=== PATIENT | female | born 1975 | race Caucasian/White ===

== ENCOUNTER 2019-09-28 08:37 | Emergency (ER) | payer OTHER, SELFPAY ==
--- NOTE | ~2019-09-28 | XR_ITS ---
EXAMINATION: XR hand RT min 3V EXAM DATE: 09/28/2019 09:06 INDICATION: Initial encounter following injury, with pain of the right hand, fourth and fifth finger s. TECHNIQUE: Right hand frontal, lateral and oblique projections obtained and reviewed. Comparison is m bennie to prior examination from 01/06/2019. FINDINGS: Right metacarpal bones are unremarkable. There are no acute fractures or dislocations iden tified. There is no subcutaneous gas. The soft tissue is unremarkable. There are no radiopaque fo reign bodies. IMPRESSION: 1. XR hand RT min 3V exam without acute osseous findings. Reviewed, dictated and finalized at location B. OR [employer]
[2019-09-28 08:40] VITALS: BP 147/88; PULSE 99; RESP 16; TEMP 36.9; O2SAT 96
--- NOTE | 2019-09-28 09:13 | ED.UPPEXIN ---
HPI - Extremity Injury (Upper) General Chief Complaint: Extremity Injury, Upper <Bhumika Bazzi PA-C - Last Filed: 09/28/19 09:52> Stated Complaint: R HAND INJURY <VIKAS Larsen Last Filed: 09/28/19 09:52> Time Seen by Provider: 09/28/19 09:03 <Bhumika Bazzi PA-C - Last Filed: 09/28/19 09:52> Source: patient <VIKAS Larsen Last Filed: 09/28/19 09:52> Mode of arrival: ambulatory <VIKAS Larsen Last Filed: 09/28/19 09:52> Limitations: no limitations <VIKAS Larsen Last Filed: 09/28/19 09:52> History of Present Illness HPI narrative: This is a 44-year-old female that presents the emergency department for right hand pain after an injury last night. Reports she was angry at her friend and punched a wall. Reports since she has had pain in her right hand, especially of the fourth and fifth fingers. Reports decreased range of motion due to pain. Denies numbness. <VIKAS Larsen Last Filed: 09/28/19 09:52> Related Data Allergies/Adverse Reactions: Allergies Allergy/AdvReac Type Severity Reaction Status Date / Time ketorolac Allergy Intermediate RASH Verified 05/16/19 12:59 acetaminophen Allergy Mild ITCHING, Verified 05/16/19 12:59 HIVES latex Allergy Mild RASH Verified 05/16/19 12:59 meperidine Allergy Mild RASH Verified 05/16/19 12:59 propoxyphene Allergy Mild RASH, Verified 05/16/19 12:59 ITCHING divalproex sodium Allergy Unknown RASH, HAIR Verified 05/16/19 12:59 LOSS hydrocodone Allergy Unknown RASH Verified 05/16/19 12:59 morphine Allergy Unknown SOB, Verified 05/16/19 12:59 THROAT SWELLING Penicillins Allergy Unknown RASH, HIVES Verified 05/16/19 12:59 phenytoin Allergy Unknown RASH Verified 05/16/19 12:59 <VIKAS Larsen Last Filed: 09/28/19 09:52> Review of Systems Review of Systems: Narrative: CONSTITUTIONAL: Denies fever SKIN: Denies laceration MUSCULOSKELETAL: Reports joint pain, and myalgia. NEUROLOGIC: Denies numbness <Bhumika Bazzi PA-C - Last Filed: 09/28/19 09:52> All systems reviewed & are unremarkable except as noted in HPI and below <Bhumika Bazzi PA-C - Last Filed: 09/28/19 09:52> PMFSH Past Medical History Medical History: Medical History (Updated 09/28/19 @ 09:52 by Bhumika Bazzi PA-C) History of asthma History of bipolar disorder History of depression History of diabetes mellitus History of gastroesophageal reflux (GERD) History of seizures History of sleep apnea <Bhumika Bazzi PA-C - Last Filed: 09/28/19 09:52> Surgical History Surgical History: Surgical History (Updated 09/28/19 @ 09:16 by Bhumika Bazzi PA-C) History of section History of cholecystectomy History of tonsillectomy History of tubal ligation Status post myringotomy with insertion of tube <Bhumika Bazzi PA-C - Last Filed: 09/28/19 09:52> Social History Social History: Social History (Updated 09/28/19 @ 09:16 by Bhumika Bazzi PA-C) Smoking status: Current some day smoker Alcohol intake: never Substance use: never <Bhumika Bazzi PA-C - Last Filed: 09/28/19 09:52> Exam Narrative: Exam Narrative: GENERAL: Well-appearing, well-nourished, and in no acute distress. HEAD: Normocephalic, atraumatic. EYES: EOMI. EXTREMITIES: Decreased range of motion in the fourth and fifth fingers due to pain. No edema or obvious deformity. Normal sensation. Normal radial pulses SKIN: Warm, dry, no rash. NEURO: No focal deficits. Alert and oriented x3. PSYCH: Normal mood and affect <Bhumika Bazzi PA-C - Last Filed: 09/28/19 09:52> Course Vital Signs Vital signs: Vital Signs Temperature 98.5 F 09/28/19 08:40 Pulse Rate 99 09/28/19 08:40 Respiratory Rate 16 09/28/19 08:40 Blood Pressure 147/88 H 09/28/19 08:40 Pulse Oximetry 96 09/28/19 08:40 Temperature 98.5 F 09/28/19 08:40 Pulse Rate 99 09/28/19 08:4
[2019-09-28] MEDS: IBUPROFEN 600 MG TABLET PO (09:15)
== END 2019-09-28 10:01 | disposition home or self-care (01) ==
PROVIDERS: Emergency Provider General Practice
DX: M79.641 Pain in right hand (principal); J45.909 Unspecified asthma, uncomplicated; K21.9 Gastro-esophageal reflux disease without esophagitis; E11.9 Type 2 diabetes mellitus without complications; G47.30 Sleep apnea, unspecified; F17.200 Nicotine dependence, unspecified, uncomplicated; W22.09XA Striking against other stationary object, initial encounter
CPT/HCPCS: 73130; 99283; A9270

== ENCOUNTER 2019-10-04 15:14 | Outpatient (RCR) | payer OTHER, SELFPAY | END 2019-10-04 23:59 | disposition home or self-care (01) | LOC: ANHAUDIO 15:14 | PROVIDERS: Visit Provider Otolaryngology | DX: Z46.1 Encounter for fitting and adjustment of hearing aid (principal) | CPT/HCPCS: 99199 ==

== ENCOUNTER 2020-01-24 12:49 | Emergency (ER) | payer OTHER, SELFPAY ==
--- NOTE | ~2020-01-24 | XR_ITS ---
EXAMINATION: XR chest 2V DATE: 01/24/2020 13:47 INDICATION: Shortness of breath TECHNIQUE: Frontal and lateral views of the chest are obtained COMPARISON: 03/29/2016 FINDINGS: The lungs are free of acute opacities. There is no pleural effusion or pneumothorax. The ca rdiomediastinal silhouette is normal. There is mild thoracic spondylosis. IMPRESSION: 1. No acute cardiopulmonary abnormality. Reviewed, dictated and finalized at location A.
[2020-01-24 12:54] VITALS: BP 135/80; PULSE 85; RESP 18; TEMP 36.3; O2SAT 100
[2020-01-24 13:12] VITALS: BP 139/93; PULSE 80; PULSE 83; RESP 16; TEMP 36.3; O2SAT 96
--- NOTE | 2020-01-24 13:12 | ECG_ITS ---
Measurements Intervals [place] Rate: 70 P: 63 SD: 181 QRS: 59 QRSD: 93 T: 47 QT: 419 QTc: 453 Interpretive Statements SINUS RHYTHM BASELINE ARTIFACT- I, II, III, AVR, AVL, AVF, V1-V2 NORMAL ECG Electronically Signed On 01-24-2020 14:30:58 CDT by Catalino Thomason D.O.
[2020-01-24 13:28] LABS: Basophils Percent Auto 0.3 % (0.2-1.2); Eosinophils Absolute Auto 0.1 K/mm3 (0-0.3); Eosinophils Percent Auto 1.2 % (0-4.4); Hematocrit 44.8 % (37.0-47.0); Hemoglobin 14.7 g/dL (12.0-15.0); Lymphocytes Absolute Auto 1.39 K/mm3 (0.9-3.2); Lymphocytes Percent Auto 13.3 % (18.3-44.2); Mean Corpuscular HGB Conc 32.8 g/dl (32-36); Mean Corpuscular Hemoglobin 31.9 pg (26-34); Mean Corpuscular Volume 97.2 fl (80-100); Mean Platelet Volume 9.5 fl (7.4-10.4); Monocytes Absolute Auto 0.6 K/mm3 (0.1-0.6); Monocytes Percent Auto 5.6 % (2.6-8.5); Neutrophils Absolute Auto 8.2 K/mm3 (1.3-6.7); Neutrophils Percent Auto 78.6 % (45.5-73.1); Platelet Count Result 292 k/mm3 (150-375); Red Blood Count 4.61 M/mm3 (4.2-5.4); Red Cell Distribution Width 13.2 % (11.5-14.5); White Blood Count 10.4 K/mm3 (4.5-10.0)
[2020-01-24 13:46] LABS: Blood Urea Nitrogen 10 mg/dL (7-17); Calcium 8.9 mg/dL (8.4-10.2); Carbon Dioxide 29 mmol/L (22-30); Chloride 102 mmol/L (98-107); Estimated CRCL calculation 120 ml/min; Estimated Glomerular Filt Rate > 60; Glucose 78 mg/dL (65-105); Potassium 3.7 mmol/L (3.4-5.0); Sodium 136 mmol/L (137-145)
--- NOTE | 2020-01-24 14:25 | ED.GENADULT ---
HPI - General Adult General Chief complaint: Shortness of Breath/Dyspnea <VIKAS Denise Last Filed: 01/24/20 14:34> Stated complaint: SOB, asthma <VIKAS Denise Last Filed: 01/24/20 14:34> Time Seen by Provider: 01/24/20 13:11 <VIKAS Denise Last Filed: 01/24/20 14:34> Source: patient <VIKAS Denise Last Filed: 01/24/20 14:34> Mode of arrival: ambulatory <VIKAS Denise Last Filed: 01/24/20 14:34> Limitations: no limitations <VIKAS Denise Last Filed: 01/24/20 14:34> History of Present Illness HPI narrative: Patient is a 44-year-old female who presents to emergency department for evaluation of dyspnea and chest tightness patient notes history of asthma and states that when she wears a mask it causes her to become short of breath patient was told she had to wear her mask today and began to feel short of breath patient notes that that is when she developed her symptoms patient on arrival denies any recent illness sick contacts or other complaints and is resting comfortably in the room in no distress <Sudhakar Fonseca PA-C - Last Filed: 01/24/20 14:34> Related Data Allergies/adverse reactions: Allergies Allergy/AdvReac Type Severity Reaction Status Date / Time ketorolac Allergy Intermediate RASH Verified 05/16/19 12:59 acetaminophen Allergy Mild ITCHING, Verified 05/16/19 12:59 HIVES latex Allergy Mild RASH Verified 05/16/19 12:59 meperidine Allergy Mild RASH Verified 05/16/19 12:59 propoxyphene Allergy Mild RASH, Verified 05/16/19 12:59 ITCHING divalproex sodium Allergy Unknown RASH, HAIR Verified 05/16/19 12:59 LOSS hydrocodone Allergy Unknown RASH Verified 05/16/19 12:59 morphine Allergy Unknown SOB, Verified 05/16/19 12:59 THROAT SWELLING Penicillins Allergy Unknown RASH, HIVES Verified 05/16/19 12:59 phenytoin Allergy Unknown RASH Verified 05/16/19 12:59 <VIKAS Denise Last Filed: 01/24/20 14:34> Review of Systems Review of Systems: All systems reviewed & are unremarkable except as noted in HPI and below <Sudhakar Fonseca PA-C - Last Filed: 01/24/20 14:34> [facility] Past Medical History Medical History: Medical History History of asthma History of bipolar disorder History of depression History of diabetes mellitus History of gastroesophageal reflux (GERD) History of seizures History of sleep apnea <Sudhakar Fonseca PA-C - Last Filed: 01/24/20 14:34> Surgical History Surgical History: Surgical History History of section History of cholecystectomy History of tonsillectomy History of tubal ligation Status post myringotomy with insertion of tube <Sudhakar Fonseca PA-C - Last Filed: 01/24/20 14:34> Social History Social History: Social History Smoking status: Current some day smoker Alcohol intake: never Substance use: never Gender identity (if verbalized by the patient): Female <Sudhakar Fonseca PA-C - Last Filed: 01/24/20 14:34> Exam Narrative: Exam Narrative: GENERAL: Well-appearing, obese, and in no acute distress. HEAD: Normocephalic, atraumatic. EYES: PERRLA and EOMI. ENT: Nares clear, no rhinorrhea or epistaxis. Mucous membranes moist. Oropharynx without tonsillar hypertrophy exudate or other lesions. NECK: Supple. No adenopathy or masses. No carotid bruits or JVD CHEST: Slightly diminished on auscultation. No respiratory distress. Slight expiratory wheezes noted HEART: Regular rate and rhythm. No murmur heard. Normal peripheral pulses. EXTREMITIES: Normal range of motion. No edema. SKIN: Warm, dry, no rash. NEURO: No focal deficits. Alert and oriented x3. Cranial nerves II through XII grossly intact PSYCH: Normal mood and affect. <Sudhakar Armijo
== END 2020-01-24 14:42 | disposition home or self-care (01) ==
PROVIDERS: Emergency Provider Emergency Medicine; PCP Family Medicine
DX: J45.901 Unspecified asthma with (acute) exacerbation (principal); E11.9 Type 2 diabetes mellitus without complications; K21.9 Gastro-esophageal reflux disease without esophagitis; G47.30 Sleep apnea, unspecified; F17.200 Nicotine dependence, unspecified, uncomplicated
CPT/HCPCS: 36415; 71046; 80048; 85025; 93005; 99284

== ENCOUNTER 2020-02-09 02:35 | Emergency (ER) | payer OTHER, SELFPAY ==
--- NOTE | ~2020-02-09 | XR_ITS ---
EXAMINATION: XR chest 2V DATE: 02/09/2020 03:08 INDICATION: Midline chest pain TECHNIQUE: PA and lateral views of the chest are obtained. COMPARISON: 01/24/2020 FINDINGS: The lungs are free of acute opacities. There is no pleural effusion or pneumothorax. The ca rdiomediastinal silhouette is normal. There is mild thoracic spondylosis. Surgical clips in the right upper quadrant are likely from prior cholecystectomy. IMPRESSION: 1. No acute cardiopulmonary abnormality. Reviewed, dictated and finalized at location A.
[2020-02-09 02:32] VITALS: BP 140/90; PULSE 85; RESP 20; TEMP 36.8; O2SAT 100
--- NOTE | 2020-02-09 02:34 | ED.CHESTPAIN ---
HPI - Chest Pain General Chief Complaint: Chest Pain Stated Complaint: cp History of Present Illness HPI narrative: Pleuritic chest pain for the past 1 hour. Started while lying in bed. No exacerbating or alleviating factors. took nitro glycerin and aspirin at home with moderate improvement in pain. Related Data Home Medications Medication Instructions Recorded Confirmed aripiprazole mg 02/15/20 buspirone mg 02/15/20 lisinopril 02/15/20 02/15/20 oxcarbazepine 750 mg PO 02/15/20 spironolactone 02/15/20 Allergies Allergy/AdvReac Type Severity Reaction Status Date / Time ketorolac Allergy Intermediate RASH Verified 02/15/20 07:11 acetaminophen Allergy Mild ITCHING, Verified 02/15/20 07:11 HIVES latex Allergy Mild RASH Verified 02/15/20 07:11 meperidine Allergy Mild RASH Verified 02/15/20 07:11 propoxyphene Allergy Mild RASH, Verified 02/15/20 07:11 ITCHING divalproex sodium Allergy Unknown RASH, HAIR Verified 02/15/20 07:11 LOSS hydrocodone Allergy Unknown RASH Verified 02/15/20 07:11 morphine Allergy Unknown SOB, Verified 02/15/20 07:11 THROAT SWELLING Penicillins Allergy Unknown RASH, HIVES Verified 02/15/20 07:11 phenytoin Allergy Unknown RASH Verified 02/15/20 07:11 Review of Systems Review of Systems: All systems reviewed & are unremarkable except as noted in HPI and below Constitutional: Constitutional: Denies fever(s) ENT: Denies sore throat Cardiovascular: Cardiovascular: Reports chest pain and Denies radiating jaw, neck or arm pain Respiratory: Respiratory: Denies cough Gastrointestinal: Gastrointestinal: Reports abdominal pain Musculoskeletal: Musculoskeletal: Denies back pain Neurologic: Denies numbness and Denies weakness Psychiatric: Psychiatric: Reports anxiety and Reports depression ON LICENSE OF [facility] Past Medical History Medical History History of asthma History of bipolar disorder History of depression History of diabetes mellitus History of gastroesophageal reflux (GERD) History of seizures History of sleep apnea Surgical History Surgical History History of section History of cholecystectomy History of tonsillectomy History of tubal ligation Status post myringotomy with insertion of tube Social History Social History Smoking status: Current some day smoker Alcohol intake: never Substance use: never Gender identity (if verbalized by the patient): Female Exam Const: General: healthy appearing, no acute distress and alert Orientation/consciousness: patient oriented x3 HENMT: Head: normal to inspection Neck: Neck: normal visual inspection and no lymphadenopathy Chest: Chest palpation & inspection: no tenderness Resp: Effort & Inspection: normal respiratory effort Auscultation: clear to auscultation bilaterally, no rales, no rhonchi and no wheezes Cardio: Jugular venous distension: no JVD Rate: regular rate Rhythm: regular rhythm Heart sounds: no murmurs GI: GI Palp: Yes Soft to palpation and No Tenderness to palpation present (GI) Other: Mild epigastric tenderness Skin: General skin exam: normal color Neuro: General: patient oriented x3 and moves all extremities Speech: normal speech Extrem: General: no edema Psych: Appearance: well kempt Affect: normal affect Course Vital Signs Vital signs: Vital Signs Temperature 36.8 C 02/09/20 02:32 Pulse Rate 85 02/09/20 02:32 Respiratory Rate 20 02/09/20 02:32 Blood Pressure 140/90 02/09/20 02:32 Pulse Oximetry 100 02/09/20 02:32 Temperature 36.6 C 02/09/20 05:20 Pulse Rate 81 02/09/20 05:20 Respiratory Rate 18 02/09/20 05:20 Blood Pressure 141/97 H 02/09/20 05:20 Pulse Oximetry 99 02/09/20 05:20 MDM - Chest Pain Medical Records Data Attestation: I reviewed the p
--- NOTE | 2020-02-09 02:42 | ECG_ITS ---
Measurements Intervals [place] Rate: 84 P: 40 [place]: 176 QRS: 52 QRSD: 83 T: 50 QT: 358 QTc: 425 Interpretive Statements SINUS RHYTHM ST ELEVATION IN DIFFUSE LEADS- PROBABLY EARLY REPOLARIZATION BORDERLINE ECG Electronically Signed On 02-09-2020 7:25:17 CDT by Catalino Thomason D.O.
[2020-02-09 03:06] LABS: Basophils Percent Auto 0.5 % (0.2-1.2); Eosinophils Absolute Auto 0.3 K/mm3 (0-0.3); Eosinophils Percent Auto 3.2 % (0-4.4); Hematocrit 42.6 % (37.0-47.0); Hemoglobin 13.9 g/dL (12.0-15.0); Immature Granulocyte Absolute 0.06 K/mm3 (0.00-0.031); Immature Granulocyte Percent A 0.8 % (0-0.5); Lymphocytes Absolute Auto 1.35 K/mm3 (0.9-3.2); Lymphocytes Percent Auto 17.5 % (18.3-44.2); Mean Corpuscular HGB Conc 32.6 g/dl (32-36); Mean Corpuscular Hemoglobin 32.3 pg (26-34); Mean Corpuscular Volume 98.8 fl (80-100); Mean Platelet Volume 9.6 fl (7.4-10.4); Monocytes Absolute Auto 0.6 K/mm3 (0.1-0.6); Monocytes Percent Auto 7.1 % (2.6-8.5); Neutrophils Absolute Auto 5.5 K/mm3 (1.3-6.7); Neutrophils Percent Auto 70.9 % (45.5-73.1); Platelet Count Result 272 k/mm3 (150-375); Red Blood Count 4.31 M/mm3 (4.2-5.4); Red Cell Distribution Width 13.4 % (11.5-14.5); White Blood Count 7.7 K/mm3 (4.5-10.0)
[2020-02-09 03:18] LABS: Blood Urea Nitrogen 14 mg/dL (7-17); Calcium 8.9 mg/dL (8.4-10.2); Carbon Dioxide 30 mmol/L (22-30); Chloride 102 mmol/L (98-107); Estimated Glomerular Filt Rate > 60; Glucose 141 mg/dL (65-105); Potassium 3.8 mmol/L (3.4-5.0); Sodium 136 mmol/L (137-145)
[2020-02-09 03:27] VITALS: BP 126/77; PULSE 82; RESP 20; O2SAT 98
[2020-02-09 03:30] LABS: Partial Thromboplastin Time 25.4 SECONDS (22.3-36.8); Prothrombin Time 12.5 Seconds (11.1-14.7); Troponin I < 0.012 ng/mL (0.000-0.034)
[2020-02-09 04:12] VITALS: BP 126/77; PULSE 75; RESP 20; O2SAT 100
[2020-02-09 05:20] VITALS: BP 141/97; PULSE 81; RESP 18; TEMP 36.6; O2SAT 99
== END 2020-02-09 05:23 | disposition home or self-care (01) ==
PROVIDERS: Emergency Provider Emergency Medicine; PCP Family Medicine
DX: R07.81 Pleurodynia (principal); J45.909 Unspecified asthma, uncomplicated; F31.9 Bipolar disorder, unspecified; E11.9 Type 2 diabetes mellitus without complications; K21.9 Gastro-esophageal reflux disease without esophagitis; G47.30 Sleep apnea, unspecified; F17.200 Nicotine dependence, unspecified, uncomplicated; R94.31 Abnormal electrocardiogram [ECG] [EKG]
CPT/HCPCS: 36415; 71046; 80048; 84484; 85025; 85610; 85730; 93005; 99284

== ENCOUNTER 2020-02-15 07:03 | Emergency (ER) | payer OTHER, SELFPAY ==
--- NOTE | ~2020-02-15 | XR_ITS ---
EXAMINATION: XR chest 1V portable DATE: 02/15/2020 07:44 INDICATION: Dizziness. TECHNIQUE: A single frontal view of the chest was obtained. COMPARISON: Chest 2 views 02/09/2020 FINDINGS: The chest demonstrates clear lungs without pneumonia, pleural effusion, or pneumothorax. Th e heart size is normal. IMPRESSION: 1. No acute cardiopulmonary disease. Reviewed, dictated and finalized at location A.
[2020-02-15 07:03] VITALS: BP 131/80; PULSE 96; RESP 15; TEMP 36.7; O2SAT 100
--- NOTE | 2020-02-15 07:07 | ECG_ITS ---
Measurements Intervals [place] Rate: 89 P: 50 [place]: 175 QRS: 28 QRSD: 92 T: 34 QT: 360 QTc: 440 Interpretive Statements SINUS RHYTHM BASELINE ARTIFACT- I, III, AVL, AVF NORMAL ECG Electronically Signed On 02-18-2020 8:56:39 CDT by Catalino Thomason D.O.
--- NOTE | 2020-02-15 07:13 | ED.GENADULT ---
HPI - General Adult General Chief complaint: Dizziness Stated complaint: dizzy Time Seen by Provider: 02/15/20 07:05 Source: RN notes reviewed History of Present Illness HPI narrative: Patient presents emergency department from home via EMS for possible seizure. Patient states she had the order that she was going to have a seizure this morning and called EMS. She states that she has a history of seizures and was just outside hospital yesterday for an EEG. Patient states she is on Trileptal 750 mg twice daily which she took last night did not take her dose this morning. She denies any recent illness denies any fevers or chills chest pain shortness of breath or any other symptoms. She states she does feel mildly dizzy with the symptoms Related Data Home Medications Medication Instructions Recorded Confirmed aripiprazole mg 02/15/20 buspirone mg 02/15/20 lisinopril 02/15/20 02/15/20 oxcarbazepine 750 mg PO 02/15/20 spironolactone 02/15/20 Allergies Allergy/AdvReac Type Severity Reaction Status Date / Time ketorolac Allergy Intermediate RASH Verified 02/15/20 07:11 acetaminophen Allergy Mild ITCHING, Verified 02/15/20 07:11 HIVES latex Allergy Mild RASH Verified 02/15/20 07:11 meperidine Allergy Mild RASH Verified 02/15/20 07:11 propoxyphene Allergy Mild RASH, Verified 02/15/20 07:11 ITCHING divalproex sodium Allergy Unknown RASH, HAIR Verified 02/15/20 07:11 LOSS hydrocodone Allergy Unknown RASH Verified 02/15/20 07:11 morphine Allergy Unknown SOB, Verified 02/15/20 07:11 THROAT SWELLING Penicillins Allergy Unknown RASH, HIVES Verified 02/15/20 07:11 phenytoin Allergy Unknown RASH Verified 02/15/20 07:11 Review of Systems Review of Systems: Narrative: Gen.: Denies fevers or chills Eyes: Denies eye pain or visual change ENT: Denies congestion Respiratory: Denies shortness of breath or cough CV: Denies chest pain or palpitations GI: Denies abdominal pain nausea, emesis or diarrhea Musculoskeletal: Denies back pain or muscle pain Neuro: See HPI Skin: Denies rash Except as documented, all other systems reviewed and negative PMFSH Past Medical History Medical History History of asthma History of bipolar disorder History of depression History of diabetes mellitus History of gastroesophageal reflux (GERD) History of seizures History of sleep apnea Social History Social History Smoking status: Current some day smoker Alcohol intake: never Substance use: never Gender identity (if verbalized by the patient): Female Exam Narrative: Exam Narrative: APPEARANCE: No acute distress, nontoxic, resting in bed EYES: EOMI HEENT: Normocephalic, atraumatic, OMM RESPIRATORY: No respiratory distress Clear to auscultation bilaterally with no rhonchi wheezing or rales. CARDIOVASCULAR: Regular rate and rhythm without murmurs rubs or gallops. ABDOMINAL: Soft, nontender, nondistended, no rebound or guarding MUSCULOSKELETAl: Moves all extremities. No clubbing, cyanosis or edema. NEURO: Awake and alert. Following commands, speech normal, no focal deficits SKIN:: Warm, dry. No rashes lesions or abrasions PSYCHIATRIC: Normal affect/mood, Course Course Emergency Course: Patient given her daily dose of Trileptal in the emergency department. Monitored for 3 hours no signs of seizures. Will discharge at this time Discussed with patient results of workup and diagnosis. Discussed need for follow-up with primary care, proper use of medication, and reasons to return to the emergency department. Patient understands and agrees to current treatment plan Vital Signs Vital signs: Vital Signs Temperature 98.1 F 02/15/20 07:03 Pulse Rate 96 02/15/20 07:03 Respiratory Rate 15 02/15/20 07:03 Blood Pressure 131/80 02/15/20 07:03 Pulse Oximetry 100 02/15/20 07:03 Temperature 98.
[2020-02-15 07:19] LABS: Basophils Absolute Auto 0.1 K/mm3 (0.0-0.1); Basophils Percent Auto 0.5 % (0.2-1.2); Eosinophils Absolute Auto 0.3 K/mm3 (0-0.3); Eosinophils Percent Auto 2.9 % (0-4.4); Hematocrit 45.4 % (37.0-47.0); Immature Granulocyte Absolute 0.05 K/mm3 (0.00-0.031); Immature Granulocyte Percent A 0.5 % (0-0.5); Lymphocytes Absolute Auto 1.25 K/mm3 (0.9-3.2); Lymphocytes Percent Auto 13.6 % (18.3-44.2); Mean Corpuscular Hemoglobin 32.1 pg (26-34); Mean Platelet Volume 9.3 fl (7.4-10.4); Monocytes Absolute Auto 0.7 K/mm3 (0.1-0.6); Monocytes Percent Auto 7.1 % (2.6-8.5); Neutrophils Absolute Auto 6.9 K/mm3 (1.3-6.7); Neutrophils Percent Auto 75.4 % (45.5-73.1); Platelet Count Result 288 k/mm3 (150-375); Red Blood Count 4.68 M/mm3 (4.2-5.4); Red Cell Distribution Width 13.9 % (11.5-14.5); White Blood Count 9.2 K/mm3 (4.5-10.0)
[2020-02-15] MEDS: OXcarbazepine 300 MG TABLET 600 MG PO (07:24)
[2020-02-15] MEDS: SODIUM CHLORIDE 0.9% IV 1,000 ML 999 ML IV CONT (07:24)
[2020-02-15] MEDS: OXcarbazepine 150 MG TABLET PO (07:24)
[2020-02-15 07:31] LABS: Alanine Aminotransferase 28 U/L (4-35); Albumin Level 4.4 g/dL (3.5-5.1); Alkaline Phosphatase 78 U/L (38-126); Aspartate Amino Transferase 30 U/L (14-36); Bilirubin,Total 0.6 mg/dL (0.2-1.3); Blood Urea Nitrogen 26 mg/dL (7-17); Calcium 9.1 mg/dL (8.4-10.2); Carbon Dioxide 30 mmol/L (22-30); Chloride 100 mmol/L (98-107); Estimated CRCL calculation 78 ml/min; Estimated Glomerular Filt Rate 60; Glucose 120 mg/dL (65-105); Potassium 3.9 mmol/L (3.4-5.0); Sodium 135 mmol/L (137-145)
[2020-02-15 08:58] VITALS: BP 102/64; PULSE 88; RESP 18; O2SAT 100
[2020-02-15 09:17] LABS: Add Urine Microscopic? NO; Appearance Urine Clear (Clear); Bacteria Urine Trace /hpf; Bilirubin Urine Negative (Negative); Blood Urine Negative (Negative); Color Urine Yellow (Yellow); Glucose Urine UA Negative (Negative); Ketones Urine Negative (Negative); Leukocyte Esterase Ur Negative LEU/UL (Negative); Mucus Urine Rare /lpf; Nitrate Urine Negative (Negative); Protein Urine Negative (Negative); RBC Urine 0-2 /hpf (0-2); Specific Grav Ur 1.025 (1.001-1.035); Squamous Epithelial Cell Urine Many /hpf (Few); Urobilinogen Urine Negative mg/dL (<2.0); WBC Urine 0-3 /hpf
== END 2020-02-15 09:36 | disposition home or self-care (01) ==
PROVIDERS: Emergency Provider Emergency Medicine; PCP Family Medicine
DX: R42 Dizziness and giddiness (principal); G40.909 Epilepsy, unspecified, not intractable, without status epilepticus; J45.909 Unspecified asthma, uncomplicated; F31.9 Bipolar disorder, unspecified; E11.9 Type 2 diabetes mellitus without complications; K21.9 Gastro-esophageal reflux disease without esophagitis; G47.30 Sleep apnea, unspecified; F17.200 Nicotine dependence, unspecified, uncomplicated
CPT/HCPCS: 36415; 71045; 80053; 81003; 81025; 85025; 93005; 96360; 99283; A9270; J7030

== ENCOUNTER 2020-02-20 11:21 | Outpatient (CLI) | payer OTHER, SELFPAY ==
--- NOTE | ~2020-02-20 | CT_ITS ---
EXAMINATION: CT sinus wo con DATE: 02/20/2020 11:48 INDICATION: Chronic sinusitis TECHNIQUE: Computed tomography (CT) of the paranasal sinuses was performed without intravenous contra st. The dose-length product (DLP) was 233.16 mGy-cm. Iterative reconstruction was used. COMPARISON: 07/03/2015 FINDINGS: There is normal development and pneumatization of the paranasal sinuses. There are surgical changes in the right maxillary sinus. There is subtle mucosal thickening seen inferiorly in the left maxillary sinus. The frontal, sphenoid, ethmoid, and maxillary sinuses are otherwise clear. The bila teral ostiomeatal complexes are patent. Visualized soft tissues are unremarkable. Mild leftward devia tion of the nasal septum is again noted. IMPRESSION: 1. Surgical changes in the right maxillary sinus and minimal mucosal thickening of the left maxillary sinus. Reviewed, dictated and finalized at location A.
== END 2020-02-20 11:22 | disposition home or self-care (01) ==
PROVIDERS: Visit Provider Otolaryngology
DX: J32.9 Chronic sinusitis, unspecified (principal)
CPT/HCPCS: 70486

== ENCOUNTER 2020-02-26 15:21 | Emergency (ER) | payer OTHER, SELFPAY ==
--- NOTE | ~2020-02-26 | US_ITS ---
EXAMINATION: US pelvic complete w TV DATE: 02/26/2020 16:06 INDICATION: Right pelvic pain. Possible ovarian cyst. Comparison:Ultrasound dated 04/03/2009 TECHNIQUE: Multiple transabdominal and endovaginal sonographic images of the pelvis performed. FINDINGS: The uterus measures 8.9 x 4.3 x 4.8 cm. There are nabothian cysts. The endometrial complex measures 7 mm. The right ovary measures 3.8 x 3.3 x 3.3 cm and the left ovary measures 2.3 x 1.9 x 1.7 cm. There is a 3.3 cm right ovarian cyst. There is no free fluid in the pelvis. There are no abnormal masses seen on either side. IMPRESSION: 1. Right ovarian cyst measuring 3.3 cm maximum dimension. Reviewed, dictated and finalized at location A.
--- NOTE | ~2020-02-26 | CT_ITS ---
EXAMINATION: CT abdomen pelvis w con INDICATION: Right lower abdominal pain TECHNIQUE: Computed tomographic images of the abdomen and pelvis were obtained after the administrati on of 100 cc of Omnipaque 350 intravenous contrast. The dose-length product (DLP) was 1471.57 mGy-cm. Automated exposure control and iterative reconstruction technique were employed. COMPARISON: 04/03/2009 FINDINGS: There is mild atelectasis of the visualized lung bases. The heart size is normal. The gallb ladder is surgically absent. There is mild enlargement of the common bile duct and central intrahepat ic ducts which is likely due to post cholecystectomy state. The liver, pancreas, and adrenal glands a re normal. There is chronic mild splenomegaly, likely related to body habitus. The kidneys are unrema rkable. No pathologically enlarged abdominal or pelvic lymph nodes are identified. There is no free i ntraperitoneal gas or evidence of bowel obstruction. The appendix is normal. There is a 3.7 cm cyst o f the right adnexa. There is mild lumbar spondylosis. IMPRESSION: 1. No CT correlate for the patient's symptoms. Reviewed, dictated and finalized at location A.
[2020-02-26 15:24] VITALS: BP 153/98; PULSE 82; RESP 20; TEMP 35.8; O2SAT 100
[2020-02-26 16:14] LABS: Add Urine Microscopic? YES; Appearance Urine Cloudy (Clear); Bacteria Urine Trace /hpf; Bilirubin Urine Negative (Negative); Blood Urine 1+ (Negative); Calcium Oxalate Crystals Urine Present /hpf; Color Urine Yellow (Yellow); Glucose Urine UA Negative (Negative); Ketones Urine Trace mg/dL (Negative); Leukocyte Esterase Ur Trace LEU/UL (Negative); Mucus Urine Rare /lpf; Nitrate Urine Negative (Negative); Protein Urine Negative (Negative); Specific Grav Ur 1.023 (1.001-1.035); Squamous Epithelial Cell Urine Many /hpf (Few); Urobilinogen Urine Negative mg/dL (<2.0); WBC Urine 0-3 /hpf
[2020-02-26 17:33] VITALS: BP 138/76; PULSE 86; O2SAT 98
--- NOTE | 2020-02-26 17:33 | PC.NURSE ---
talking wtih patient
--- NOTE | 2020-02-26 17:36 | ED.ABDPAIN ---
HPI - Abdominal Pain General Chief Complaint: Abdominal Pain Stated Complaint: Cyst on Ovary, Hernia Time Seen by Provider: 02/26/20 17:22 Source: patient Mode of arrival: ambulatory Limitations: no limitations History of Present Illness HPI narrative: This patient is a 44 year old female who presents for evaluation of right lower abdominal pain. She states this pain started Tuesday morning and it has remained constant. She was evaluated on Tuesday at [facility] ED and she had an MRI . She was told she had a right ovarian cyst and a hernia. She has been taking ibuprofen and vicodin for her pain. She states she is still have severe pain so she was told to come to ER. She denies fever, nausea, vomiting or urinary symptoms. MD elicited complaint: abdominal pain Quality: sharp Radiation: none Migration to: no migration Related Data Home Medications Medication Instructions Recorded Confirmed aripiprazole mg 02/15/20 buspirone mg 02/15/20 lisinopril 02/15/20 02/15/20 oxcarbazepine 750 mg PO 02/15/20 spironolactone 02/15/20 Allergies Allergy/AdvReac Type Severity Reaction Status Date / Time ketorolac Allergy Intermediate RASH Verified 02/26/20 17:25 acetaminophen Allergy Mild ITCHING, Verified 02/26/20 17:25 HIVES latex Allergy Mild RASH Verified 02/26/20 17:25 meperidine Allergy Mild RASH Verified 02/26/20 17:25 propoxyphene Allergy Mild RASH, Verified 02/26/20 17:25 ITCHING divalproex sodium Allergy Unknown RASH, HAIR Verified 02/26/20 17:25 LOSS hydrocodone Allergy Unknown RASH Verified 02/26/20 17:25 morphine Allergy Unknown SOB, Verified 02/26/20 17:25 THROAT SWELLING Penicillins Allergy Unknown RASH, HIVES Verified 02/26/20 17:25 phenytoin Allergy Unknown RASH Verified 02/26/20 17:25 Review of Systems Review of Systems: All systems reviewed & are unremarkable except as noted in HPI and below Constitutional: Constitutional: Denies chills and Denies fever(s) Gastrointestinal: Gastrointestinal: Reports abdominal pain, Denies diarrhea, Denies nausea and Denies vomiting Genitourinary: Genitourinary: Denies hematuria, Denies nocturia, Denies dysuria and Denies flank pain PMFSH Past Medical History Medical History History of asthma History of bipolar disorder History of depression History of diabetes mellitus History of gastroesophageal reflux (GERD) History of seizures History of sleep apnea Surgical History Surgical History History of section History of cholecystectomy History of tonsillectomy History of tubal ligation Status post myringotomy with insertion of tube Social History Social History Smoking status: Current some day smoker Alcohol intake: never Substance use: never Gender identity (if verbalized by the patient): Female Exam Narrative: Exam Narrative: GENERAL: Well-appearing, well-nourished, and in no acute distress. morbidly obese HEAD: Normocephalic, atraumatic EYES: PERRLA and EOMI, conjunctiva clear without discharge THROAT:Mucous membranes moist, NECK: Supple, without lymphadenopathy or mass RESPIRATORY: No respiratory distress, Airway patent, Respirations non-labored, Clear to auscultation without rales, rhonchi or wheeze HEART: Regular rate and rhythm. No murmur heard. Normal peripheral pulses. ABDOMEN: Soft, RLQ TTP, nondistended, normal active bowel sounds. No masses. No rebound or guarding, No organomegaly. EXTREMITIES: No edema, normal strength with full range of motion. SKIN: Warm, dry, normal color without rash NEURO: Alert and oriented x3. CN 2-12 grossly intact. No focal deficits. PSYCH: Normal mood and affect. Course Reevaluation(s) Reevaluation #1: I Discussed CT and ultrasound with patient. CT did not mention a hernia. She will
[2020-02-26 17:57] LABS: Basophils Absolute Auto 0.1 K/mm3 (0.0-0.1); Basophils Percent Auto 0.6 % (0.2-1.2); Eosinophils Absolute Auto 0.3 K/mm3 (0-0.3); Eosinophils Percent Auto 3.3 % (0-4.4); Hematocrit 43.1 % (37.0-47.0); Hemoglobin 14.3 g/dL (12.0-15.0); Immature Granulocyte Absolute 0.04 K/mm3 (0.00-0.031); Immature Granulocyte Percent A 0.5 % (0-0.5); Lymphocytes Absolute Auto 1.37 K/mm3 (0.9-3.2); Lymphocytes Percent Auto 16.1 % (18.3-44.2); Mean Corpuscular HGB Conc 33.2 g/dl (32-36); Mean Corpuscular Hemoglobin 32.2 pg (26-34); Mean Corpuscular Volume 97.1 fl (80-100); Mean Platelet Volume 9.2 fl (7.4-10.4); Monocytes Absolute Auto 0.5 K/mm3 (0.1-0.6); Monocytes Percent Auto 6.2 % (2.6-8.5); Neutrophils Absolute Auto 6.2 K/mm3 (1.3-6.7); Neutrophils Percent Auto 73.3 % (45.5-73.1); Platelet Count Result 289 k/mm3 (150-375); Red Blood Count 4.44 M/mm3 (4.2-5.4); Red Cell Distribution Width 13.6 % (11.5-14.5); White Blood Count 8.5 K/mm3 (4.5-10.0)
[2020-02-26 18:08] LABS: Alanine Aminotransferase 23 U/L (4-35); Albumin Level 4.3 g/dL (3.5-5.1); Alkaline Phosphatase 71 U/L (38-126); Aspartate Amino Transferase 31 U/L (14-36); Bilirubin,Total 0.5 mg/dL (0.2-1.3); Blood Urea Nitrogen 9 mg/dL (7-17); Calcium 9.7 mg/dL (8.4-10.2); Carbon Dioxide 26 mmol/L (22-30); Chloride 102 mmol/L (98-107); Estimated CRCL calculation 106 ml/min; Estimated Glomerular Filt Rate > 60; Glucose 94 mg/dL (65-105); Potassium 3.5 mmol/L (3.4-5.0); Sodium 138 mmol/L (137-145)
[2020-02-26] MEDS: IBUPROFEN IV 400 MG in SODIUM CHLORIDE 0.9% IV 100 ML 200 MG IVPB (18:42)
[2020-02-26 19:51] VITALS: BP 130/87; PULSE 79; RESP 18; TEMP 36.8; O2SAT 100
== END 2020-02-26 20:00 | disposition home or self-care (01) ==
PROVIDERS: Emergency Medicine; Emergency Provider General Practice
DX: N83.201 Unspecified ovarian cyst, right side (principal); J45.909 Unspecified asthma, uncomplicated; F31.9 Bipolar disorder, unspecified; E11.9 Type 2 diabetes mellitus without complications; K21.9 Gastro-esophageal reflux disease without esophagitis; G40.909 Epilepsy, unspecified, not intractable, without status epilepticus; G47.30 Sleep apnea, unspecified
CPT/HCPCS: 36415; 74177; 76830; 76856; 80053; 81001; 81025; 85025; 96365; 99284; J1741; Q9967

== ENCOUNTER 2020-12-12 09:41 | Outpatient (CLI) | payer OTHER, SELFPAY | END 2020-12-12 09:42 | disposition home or self-care (01) | LOC: ANHAUDIO 09:46 | PROVIDERS: PCP Internal Medicine; Visit Provider Otolaryngology | DX: R04.0 Epistaxis (principal); J32.9 Chronic sinusitis, unspecified; H90.3 Sensorineural hearing loss, bilateral | CPT/HCPCS: 92557; 92567 ==

== ENCOUNTER 2021-01-27 10:24 | Outpatient (RCR) | payer OTHER, SELFPAY | END 2021-01-27 23:59 | disposition home or self-care (01) | LOC: ANHAUDIO 10:24 | PROVIDERS: PCP Internal Medicine; Visit Provider Internal Medicine | DX: Z46.1 Encounter for fitting and adjustment of hearing aid (principal) | CPT/HCPCS: V5160; V5261; V5264 ==

== ENCOUNTER 2021-05-30 14:07 | Emergency (ER) | payer OTHER, SELFPAY ==
[2021-05-30] VITALS (7 sets, daily range): BP systolic 117–155; BP diastolic 67–114; PULSE 91–122; RESP 20–36; TEMP 36.6; O2SAT 87–100
--- NOTE | ~2021-05-30 | XR_ITS ---
EXAMINATION: XR chest 1V portable INDICATION: Shortness of breath TECHNIQUE: Portable AP chest at 1429 hours COMPARISON: 02/15/2020 FINDINGS: The lungs are free of acute opacities. There is no pleural effusion or pneumothorax. The ca rdiomediastinal silhouette is normal. IMPRESSION: 1. No acute cardiopulmonary abnormality. Reviewed, dictated and finalized at location A.
--- NOTE | 2021-05-30 14:03 | ED.GENADULT ---
HPI - General Adult General Chief complaint: Asthma Stated complaint: SOB Source: patient and EMS Mode of arrival: EMS Limitations: no limitations History of Present Illness HPI narrative: 46-year-old female was brought in by EMS after she called 911 when she was unable to catch her breath. She states that she has numerous medications for her asthma including her nebulizer machine and nothing was working. She uses her medications every day. She denies any recent illness, she is Covid vaccinated. Today she was holding her grandbaby when she suddenly developed extreme shortness of breath, she was at a birthday constitution party. She received 2 - 5 mg albuterol treatments in route and a dose of dexamethasone. She is speaking in whole sentences. Related Data Home Medications Medication Instructions Recorded Confirmed aripiprazole mg 02/15/20 buspirone mg 02/15/20 lisinopril 02/15/20 02/15/20 oxcarbazepine 750 mg PO 02/15/20 spironolactone 02/15/20 Allergies Allergy/AdvReac Type Severity Reaction Status Date / Time ketorolac Allergy Intermediate RASH Verified 05/30/21 14:15 acetaminophen Allergy Mild ITCHING, Verified 05/30/21 14:15 HIVES latex Allergy Mild RASH Verified 05/30/21 14:15 meperidine Allergy Mild RASH Verified 05/30/21 14:15 propoxyphene Allergy Mild RASH, Verified 05/30/21 14:15 ITCHING divalproex sodium Allergy Unknown RASH, HAIR Verified 05/30/21 14:15 LOSS hydrocodone Allergy Unknown RASH Verified 05/30/21 14:15 morphine Allergy Unknown SOB, Verified 05/30/21 14:15 THROAT SWELLING Penicillins Allergy Unknown RASH, HIVES Verified 05/30/21 14:15 phenytoin Allergy Unknown RASH Verified 05/30/21 14:15 Review of Systems Review of Systems: All systems reviewed & are unremarkable except as noted in HPI and below PMFSH Past Medical History Medical History (Updated 05/30/21 @ 16:14 by Fatuma Mullen PA-C) History of asthma History of bipolar disorder History of depression History of diabetes mellitus History of gastroesophageal reflux (GERD) History of seizures History of sleep apnea Surgical History Surgical History History of section History of cholecystectomy History of tonsillectomy History of tubal ligation Status post myringotomy with insertion of tube Social History Social History Smoking status: Current some day smoker Alcohol intake: never Substance use: never Gender identity (if verbalized by the patient): Female Exam Const: General: healthy appearing, no acute distress and alert Orientation/consciousness: patient oriented x3 HENMT: Head: normal to inspection Eyes: Pupils: Equal, round and reactive pupils present Resp: Effort & Inspection: normal respiratory effort Auscultation: clear to auscultation bilaterally Cardio: Rate: regular rate and tachycardic Rhythm: regular rhythm GI: GI Palp: Yes Soft to palpation Skin: General skin exam: normal color Rashes: no rashes Neuro: General: patient oriented x3 and moves all extremities Extrem: General: normal to inspection Psych: Mental Status: mental status grossly normal Course Course Emergency Course: Patient is able to speak in complete sentences, states that she does feel better than when she called 911. She does still have some chest tightness. Her EKG is unremarkable. She is feeling better. She is concerned that she may have had one of her 'baby seizures , she typically has one every 2-3 days. She has no residual. She is followed by neurology in [place]. She has been using her daughter's inhaler periodically, will do MDI instruct for a home MDI for patient. Vital Signs Vital signs: Vital Signs Temperature 36.6 C 05/30/21 14:04 Pulse Rate 105 H 05/30/21 14:04 Respiratory Rate 20 05/30/21 14:04 Blood Pressure 135/94 H 05/30/21 14:04 Pulse Oximetry 10
--- NOTE | 2021-05-30 14:14 | ECG_ITS ---
Measurements Intervals [place] Rate: 99 P: 44 NC: 176 QRS: 20 QRSD: 94 T: 87 QT: 278 QTc: 358 Interpretive Statements SINUS RHYTHM WITH SINUS ARRHYTHMIA MINIMAL Q WAVES- HIGH LATERAL LEADS NONSPECIFIC T-WAVE ABNORMALITY- DIFFUSE LEADS BASELINE ARTIFACT- I, II, AVR BORDERLINE ECG Electronically Signed On 06-01-2021 15:47:29 CDT by Catalino Thomason D.O.
[2021-05-30 14:38] LABS: Basophils Absolute Auto 0.1 K/mm3 (0.0-0.1); Basophils Percent Auto 0.7 % (0.2-1.2); Eosinophils Absolute Auto 0.7 K/mm3 (0-0.3); Eosinophils Percent Auto 7.7 % (0-4.4); Hematocrit 47.9 % (37.0-47.0); Hemoglobin 16.4 g/dL (12.0-15.0); Immature Granulocyte Absolute 0.05 K/mm3 (0.00-0.031); Immature Granulocyte Percent A 0.5 % (0-0.5); Lymphocytes Absolute Auto 2.53 K/mm3 (0.9-3.2); Lymphocytes Percent Auto 27.6 % (18.3-44.2); Mean Corpuscular HGB Conc 34.2 g/dl (32-36); Mean Corpuscular Hemoglobin 31.7 pg (26-34); Mean Corpuscular Volume 92.5 fl (80-100); Mean Platelet Volume 9.4 fl (7.4-10.4); Monocytes Absolute Auto 0.5 K/mm3 (0.1-0.6); Neutrophils Absolute Auto 5.4 K/mm3 (1.3-6.7); Neutrophils Percent Auto 58.5 % (45.5-73.1); Platelet Count Result 339 k/mm3 (150-375); Red Blood Count 5.18 M/mm3 (4.2-5.4); Red Cell Distribution Width 13.3 % (11.5-14.5); White Blood Count 9.2 K/mm3 (4.5-10.0)
[2021-05-30 14:49] LABS: Anion Gap 13 mmol/L (8-16); Blood Urea Nitrogen 8 mg/dL (7-17); Calcium 9.5 mg/dL (8.4-10.2); Carbon Dioxide 27 mmol/L (22-30); Chloride 102 mmol/L (98-107); Estimated CRCL calculation 98 ml/min; Estimated Glomerular Filt Rate > 60; Glucose 147 mg/dL (65-110); Potassium 3.2 mmol/L (3.4-5.0); Sodium 142 mmol/L (137-145)
[2021-05-30] MEDS: IBUPROFEN 400 MG TABLET 800 MG PO (15:32)
== END 2021-05-30 17:35 | disposition home or self-care (01) ==
PROVIDERS: Physician Assistant; Emergency Provider Emergency Medicine; PCP Internal Medicine
DX: J45.31 Mild persistent asthma with (acute) exacerbation (principal); E11.9 Type 2 diabetes mellitus without complications; K21.9 Gastro-esophageal reflux disease without esophagitis; G47.30 Sleep apnea, unspecified; F31.9 Bipolar disorder, unspecified; F17.200 Nicotine dependence, unspecified, uncomplicated; R94.31 Abnormal electrocardiogram [ECG] [EKG]
CPT/HCPCS: 36415; 71045; 80048; 85025; 93005; 99283; A9270

== ENCOUNTER 2021-10-30 08:57 | Outpatient (RCR) | payer OTHER, SELFPAY | END 2021-10-30 23:59 | disposition home or self-care (01) | LOC: ANHAUDIO 08:57 | PROVIDERS: PCP Internal Medicine; Visit Provider Internal Medicine | DX: Z46.1 Encounter for fitting and adjustment of hearing aid (principal) | CPT/HCPCS: V5264 ==